=== PATIENT | female | born 1985 | race Hispanic/Latino ===

== ENCOUNTER 2018-12-01 02:13 | Inpatient (IN) | payer MEDICAID, OTHER, SELFPAY ==
[2018-12-01 02:44] LABS: Amnisure Internal Control QC ACCEPTABLE (ACCEPTABLE); Amnisure Test RUPTURE DETECTED (No Rupture)
[2018-12-01 02:46] VITALS: BMI 30.9
[2018-12-01] MEDS ORDERED: Acetaminophen 500 MG TAB PO PRN (03:14)
[2018-12-01] MEDS ORDERED: Lactated Ringer's 1,000 ML IV SCH (03:14)
[2018-12-01] MEDS ORDERED: Promethazine HCl 25 MG/ML VIAL IM PRN ×2 (03:14→04:33)
[2018-12-01] MEDS ORDERED: Ondansetron PF 4 MG/2 ML Vial IVP PRN ×2 (03:14→04:33)
[2018-12-01] MEDS ORDERED: Butorphanol Tartrate 1 MG/ML VIAL SLOW IVP PRN (03:14)
[2018-12-01] MEDS ORDERED: NS / Oxytocin 40 units/1000ml 1,000 ML IV SCH ×2 (03:15→11:54)
[2018-12-01] MEDS ORDERED: Lidocaine 1% (PF) 30 ML VIAL SC PRN (03:15)
[2018-12-01] MEDS ORDERED: NS w/ Oxytocin 10 units 500 ML IV SCH ×2 (03:15)
[2018-12-01] MEDS ORDERED: Fentanyl 4 mcg/Bup 0.1% Cadd 100 ML ONE (03:38)
[2018-12-01 03:42] LABS: Hemoglobin 12.4 g/dL (12.0-16.0); Mean Corpuscular HGB CONC 34.6 g/dL (32.0-36.0); Mean Corpuscular Hemoglobin 29.4 pg (27.0-31.0); Mean Corpuscular Volume 85.1 fL (78.0-98.0); Mean Platelet Volume 7.7 fL (7.4-10.4); Platelet Count 217 thou/uL (130-400); RBC Distribution Width 12.6 % (11.5-14.5); Red Blood Cell (RBC) Count 4.21 mill/uL (4.20-5.40); White Blood Cell (WBC) Count 10.9 thou/uL (4.8-10.8)
[2018-12-01 04:20] LABS: HBSAg Index 0.16 S/CO (0-0.99); HIV (1/2) Antibody/Antigen Non-Reactive (NonReactive); HIV 1/2 INDEX 0.08 S/CO (<1.00); Hep B Surf Ag Non-Reactive S/CO (NonReactive)
[2018-12-01 04:21] LABS: Syphilis Antibody Nonreactive (Nonreactive); Syphilis Antibody Index 0.03 S/CO (<1.00 Non-Reactive)
[2018-12-01] MEDS ORDERED: Lactated Ringer's 500 ML IV PRN (04:33)
[2018-12-01] MEDS ORDERED: Naloxone HCl 0.4 mg/ml Vial IVP PRN ×2 (04:33)
[2018-12-01] MEDS ORDERED: Acetaminophen 325 MG TAB PO PRN (04:33)
[2018-12-01] MEDS ORDERED: ePHEDrine/0.9% NaCl/PF SYRINGE 50 mg/10 ml SLOW IVP PRN (04:33)
[2018-12-01] MEDS ORDERED: Eucerin (Mineral Oil/Petrolatum,White) 30 gm Jar TOP PRN (04:33)
[2018-12-01] MEDS ORDERED: diphenhydrAMINE 50 MG/ML VIAL IVP PRN (04:33)
[2018-12-01] MEDS: Lactated Ringer's 1,000 ML IV SCH ×2 (04:36→15:52)
[2018-12-01] MEDS ORDERED: Communication Order-Pharmacy FS SCH (04:45)
[2018-12-01] MEDS ORDERED: Fentanyl 4 mcg/Bupivacaine 0.1% Cassette 100 ML EPIDURAL SCH (04:45)
--- NOTE | 2018-12-01 10:51 | PDOC.OPDEL ---
OB Operative/Delivery Note Delivery Dr/Surgeon: Elina Cunha ( Resident, Ob track); Aroldo (Faculty) Assist: Kendrick (Dr cano was not available for delivery) Pre-Delivery Diagnosis: active labor, other (TOLAC, HX successful x1) Procedure/Post Delivery Dx: spontaneous vaginal delivery (TOLAC) Anesthesia: epidural - Findings A Sex: female - 1 min: 9 - 5 min: 9 - Additional Findings/Plan Placenta delivered: spontaneous ( female at 1038) Estimated blood loss: 300 Compilations/Other Findings: Vigorous , no NC 3vc, placenta intact Plac at 1042...grace mechanism All counts correct No lacs No repair QBL pending Post delivery plan: routine recovery
[2018-12-01] MEDS ORDERED: Bupivacaine HCl 0.25%/Epi 0.0005/PF 10 ML VIAL FS ONE (11:11)
--- NOTE | 2018-12-01 11:52 | PDOC.EVN ---
Event Note - Event Note Event Note: AROM performed. Baby /+. Cat 1 strip.
[2018-12-01] MEDS ORDERED: Lanolin Ointment 7 GM TUBE TOP PRN (11:54)
[2018-12-01] MEDS ORDERED: Milk Of Magnesia 30 ML UDCUP PO PRN (11:54)
[2018-12-01] MEDS ORDERED: Preparation H Ointment 28 GM TUBE PR PRN (11:54)
[2018-12-01] MEDS ORDERED: Bisacodyl 10 MG SUPP PR PRN (11:54)
[2018-12-01] MEDS ORDERED: Methylergonovine 0.2 MG TAB PO PRN (11:54)
[2018-12-01] MEDS ORDERED: Methylergonovine 0.2 MG/ML VIAL IM PRN (11:54)
[2018-12-01] MEDS ORDERED: diphenhydrAMINE 25 MG CAP PO PRN (11:54)
[2018-12-01] MEDS ORDERED: Misoprostol 200 MCG TAB VAG PRN (11:54)
[2018-12-01] MEDS: Ibuprofen 800 MG TAB PO SCH (22:32)
[2018-12-01] MEDS: Docusate Calcium (SURFAK) 240 MG CAP PO SCH (22:32)
--- NOTE | 2018-12-02 00:43 | PDOC.PP ---
Post Progress Note Post Day #: 1 Subjective: Sleeping, doing well. She awoke as I was entering the room PO intake tolerated: yes Flatus: yes Ambulation: yes Vital Signs (12 hours) Temp Pulse Resp BP BP Pulse Ox 12/01/18 23:10 98.4 F 69 16 98/55 L 12/01/18 20:10 98.2 F 89 20 105/53 L 97 12/01/18 17:10 98.8 F 86 16 96/49 L 96 12/01/18 13:30 98.1 F 88 20 98/53 L 95 Weight Weight 180 lb - Physical Examination General: NAD Cardiovascular: no m/r/g Respiratory: clear to auscultation bilaterally Abdominal: + bowel sounds, lochia, no distention, appropriately TTP Extremities: negative homans (B) Neurological: no gross focal deficits Psychiatric: A&Ox3, normal affect Result Diagrams: 12/01/18 03:14 Additional Labs: Post Labs Blood Type O POSITIVE 12/01/18 03:15 Hep Bs Antigen Non-Reactive S/CO (NonReactive) 12/01/18 03:14 (1) , delivered Code(s): O34.219 - MATERNAL CARE FOR UNSP TYPE SCAR FROM PREVIOUS DEL Status: Acute - Assessment/Plan Plan: on 12/01/18...doing well. I offered the patient dsch on PPD 1 this AM or PPD2 tomorrow. As the other children are with her in the room, she has elected for dsch later today which is PPD1 I have written for mariajose espinozan F/U with [facility] in 2-4 weeks
[2018-12-02] MEDS: Ibuprofen 800 MG TAB PO SCH (05:33)
[2018-12-02 06:44] LABS: Hemoglobin 11.7 g/dL (12.0-16.0); Mean Corpuscular HGB CONC 33.5 g/dL (32.0-36.0); Mean Corpuscular Hemoglobin 29.2 pg (27.0-31.0); Mean Platelet Volume 7.9 fL (7.4-10.4); Platelet Count 204 thou/uL (130-400); RBC Distribution Width 12.7 % (11.5-14.5); White Blood Cell (WBC) Count 11.3 thou/uL (4.8-10.8)
[2018-12-02 08:54] VITALS: BP 99/49; TEMP 98
[2018-12-02] MEDS ORDERED: Adacel (T-DAP) 0.5 ML SYRINGE IM ONE (09:00)
[2018-12-02] MEDS ORDERED: Prenatal Vitamin 1 TAB PO SCH (09:00)
[2018-12-02] MEDS: Docusate Calcium (SURFAK) 240 MG CAP PO SCH (09:53)
== END 2018-12-02 14:05 | disposition home or self-care (01) | DRG 807 ==
LOC: L&D/OP 02:13 → L&D 03:21 → 3SW 13:36
PROVIDERS: ADMIT Family Medicine; ATTEND Family Medicine
PROC: 10E0XZZ Delivery of Products of Conception, External Approach (ICD-10-PCS; principal; 2018-12-01)
PROC: 10907ZC Drainage of Amniotic Fluid, Therapeutic from Products of Conception, Via Natural or Artificial Opening (ICD-10-PCS; 2018-12-01)
DX: O34.219 Maternal care for unspecified type scar from previous cesarean delivery (principal); Z37.0 Single live birth; Z3A.39 39 weeks gestation of pregnancy
CPT/HCPCS: 36415; 51702; 84112; 85027; 86762; 86780; 86850; 86900; 86901; 87340; 87389; 90715; 99285; J2001

== ENCOUNTER 2019-08-05 20:27 | Emergency (ER) | payer MEDICAID, SELFPAY ==
--- NOTE | 2019-08-05 20:54 | RAD ---
EXAM: 3 views of the right ankle HISTORY: Ankle pain after injury COMPARISON: None FINDINGS: 3 views of the right ankle shows no evidence of acute fracture or dislocation. Mild soft ti ssue swelling is seen. No degenerative changes are present. IMPRESSION: No evidence of acute osseous abnormality.
[2019-08-05] MEDS ORDERED: Ibuprofen 800 MG TAB ONE (21:05)
== END 2019-08-05 21:18 | disposition home or self-care (01) ==
LOC: ERS 20:27
DX: S93.401A Sprain of unspecified ligament of right ankle, initial encounter (principal); X50.1XXA Overexertion from prolonged static or awkward postures, initial encounter

== ENCOUNTER 2020-05-05 08:17 | Outpatient (CLI) | payer MEDICAID ==
--- NOTE | 2020-05-05 14:27 | ULT ---
OBSTETRICAL ULTRASOUND: DATE: 05/05/2020. COMPARISON: None. HISTORY: Evaluate anatomy, a 34-year-old female. TECHNIQUE: Multiplanar, nicole scale sonographic imaging of the gravid uterus obtained. FINDINGS: Cervical length is approximately 3.4 cm. Placenta located posteriorly with placental tip approximate ly 2.8 cm from the internal os. There is a vertex presentation. Intracranial contents appear unremarkable as does the st omach. heart rate is 147 b.p.m. kidneys, urinary bladder, and umbilical cord appear jorden ssly unremarkable. Umbilical cord insertion site and spine appear within normal limits. Three -vessel cord is documented. Amniotic fluid index is 12.4 cm. Four-chamber heart view unremarkable. Biometry: BPD 4.5 cm, 19 weeks 4 days HC 18.1 cm, 20 weeks 4 days AC 15.3 cm, 20 weeks 4 days FL 3.3 cm, 20 weeks 1 day Average age based on ultrasound is 20 weeks 2 days. Estimated weight is 345 gm +/- 50 grams. Estimated date of delivery based on ultrasound is 09/20/2020. IMPRESSION: Intrauterine gestation as detailed above. POS: LAURI
== END 2020-05-05 08:18 | disposition home or self-care (01) ==
LOC: BICULT 08:17
PROVIDERS: ATTEND Family Medicine
DX: O09.522 Supervision of elderly multigravida, second trimester (principal); Z3A.20 20 weeks gestation of pregnancy
CPT/HCPCS: 76805

== ENCOUNTER 2020-09-18 23:43 | Inpatient (IN) | payer MEDICAID, SELFPAY ==
[2020-09-19] MEDS ORDERED: Lidocaine 1% (PF) 30 ML VIAL ONE (00:09)
[2020-09-19] MEDS ORDERED: NS / Oxytocin 40 units/1000ml 1,000 ML ONE (00:09)
[2020-09-19] MEDS: NS / Oxytocin 40 units/1000ml 1,000 ML IV PRN ×2 (00:24→01:44)
[2020-09-19 00:25] LABS: Hemoglobin 11.1 g/dL (12.0-16.0); Mean Corpuscular HGB CONC 33.5 g/dL (32.0-36.0); Mean Corpuscular Hemoglobin 26.7 pg (27.0-31.0); Mean Corpuscular Volume 79.9 fL (78.0-98.0); Mean Platelet Volume 8.2 fL (7.4-10.4); Platelet Count 294 thou/uL (130-400); RBC Distribution Width 13.1 % (11.5-14.5); Red Blood Cell (RBC) Count 4.15 mill/uL (4.20-5.40); White Blood Cell (WBC) Count 11.4 thou/uL (4.8-10.8)
[2020-09-19] MEDS ORDERED: Diphenoxylate HCl/Atropine Tablet PO PRN (00:38)
[2020-09-19] MEDS ORDERED: Misoprostol 200 MCG TAB PR PRN (00:38)
[2020-09-19] MEDS ORDERED: Methylergonovine 0.2 MG/ML VIAL IM PRN (00:38)
[2020-09-19] MEDS ORDERED: Ibuprofen 800 MG TAB PO PRN (00:38)
[2020-09-19] MEDS ORDERED: Carboprost 250 MCG/ML AMP IM PRN (00:38)
[2020-09-19] MEDS ORDERED: Lidocaine 1% (PF) 30 ML VIAL SC PRN (00:38)
[2020-09-19] MEDS ORDERED: HYDROcodone/Acetaminophen 5/325 mg Tablet PO PRN ×2 (00:38→07:55)
[2020-09-19 01:04] LABS: HBSAg Index 0.16 S/CO (0-0.99); Hep B Surf Ag Non-Reactive S/CO (NonReactive)
[2020-09-19 01:24] VITALS: BMI 30.2
[2020-09-19 04:09] LABS: Syphilis Antibody Nonreactive (Nonreactive); Syphilis Antibody Index 0.02 S/CO (<1.00 Non-Reactive)
[2020-09-19] MEDS ORDERED: NS / Oxytocin 40 units/1000ml 1,000 ML IV SCH (07:55)
[2020-09-19] MEDS ORDERED: Preparation H Ointment 28 GM TUBE PR PRN (07:55)
[2020-09-19] MEDS ORDERED: Lanolin Ointment 7 GM TUBE TOP PRN (07:55)
[2020-09-19] MEDS ORDERED: hydrALAZINE 20 MG/ML VIAL SLOW IVP PRN (07:55)
[2020-09-19] MEDS ORDERED: Ondansetron PF 4 MG/2 ML Vial IVP PRN (07:55)
[2020-09-19] MEDS ORDERED: Milk Of Magnesia 30 ML UDCUP PO PRN (07:55)
[2020-09-19] MEDS ORDERED: Adacel (T-DAP) 0.5 ML SYRINGE IM ONE (07:55)
[2020-09-19] MEDS ORDERED: Bisacodyl 10 MG SUPP PR PRN (07:55)
[2020-09-19] MEDS ORDERED: FLU VACC QS2020-21(6MOS UP)/PF 60 MCG/0.5 ML SYRINGE IM ONE (09:00)
[2020-09-19] MEDS: HYDROcodone/Acetaminophen 5/325 mg Tablet PO PRN ×2 (09:36→20:38)
[2020-09-19] MEDS: Docusate Calcium (SURFAK) 240 MG CAP PO SCH ×2 (09:36→20:37)
[2020-09-19] MEDS: Prenatal Vitamin 1 TAB PO SCH (09:36)
[2020-09-19] MEDS: Ferrous Sulfate 325 MG TAB PO SCH ×2 (09:41→18:00)
[2020-09-19 11:03] LABS: SARS-CoV-2 MS2 Positive; SARS-CoV-2 N Gene Negative; SARS-CoV-2 S Gene Negative; SARS-CoV-2 by NAA Not Detected (NotDetected); SARS-CoV-2 orf1ab Negative
[2020-09-19] MEDS: Ibuprofen 800 MG TAB PO SCH ×2 (14:27→22:06)
[2020-09-20] MEDS: Ibuprofen 800 MG TAB PO SCH ×2 (05:24→13:27)
[2020-09-20 08:00] VITALS: BP 110/56; TEMP 97.9
[2020-09-20] MEDS: Ferrous Sulfate 325 MG TAB PO SCH ×2 (08:21→15:41)
[2020-09-20] MEDS: Prenatal Vitamin 1 TAB PO SCH (08:47)
[2020-09-20] MEDS: Docusate Calcium (SURFAK) 240 MG CAP PO SCH (08:47)
== END 2020-09-20 16:55 | disposition home or self-care (01) | DRG 807 ==
LOC: L&D/OP 23:43 → L&D 09-19 00:17 → 3SW 09-19 09:21
PROVIDERS: ADMIT Family Medicine; ATTEND Family Medicine
PROC: 10E0XZZ Delivery of Products of Conception, External Approach (ICD-10-PCS; principal; 2020-09-19)
PROC: 10907ZC Drainage of Amniotic Fluid, Therapeutic from Products of Conception, Via Natural or Artificial Opening (ICD-10-PCS; 2020-09-19)
DX: O62.3 Precipitate labor (principal); Z37.0 Single live birth; Z3A.39 39 weeks gestation of pregnancy; O76 Abnormality in fetal heart rate and rhythm complicating labor and delivery; O34.211 Maternal care for low transverse scar from previous cesarean delivery; O77.0 Labor and delivery complicated by meconium in amniotic fluid; Z20.828 Contact with and (suspected) exposure to other viral communicable diseases
CPT/HCPCS: 85027; 86780; 86850; 86900; 86901; 87340; 87635; 99285; J2001; U0003

== ENCOUNTER 2023-02-27 14:02 | Emergency (ER) | payer MEDICAID, SELFPAY ==
[2023-02-27 14:55] LABS: #Eosinphils 0.1 thou/uL (0.0-0.7); #Lymphocytes 1.7 thou/uL (1.20-3.40); #Monocytes 0.3 thou/uL (0.11-0.59); #Neutrophils 7.9 thou/uL (1.40-6.50); %Basophils 0.2 % (0.0-1.0); %Eosinophils 0.8 % (0.0-10.0); %Lymphocytes 17.2 % (21.0-51.0); %Neutrophils 78.8 % (42.0-75.0); Hemoglobin 13.5 g/dL (12.0-16.0); Mean Corpuscular HGB CONC 34.8 g/dL (32.0-36.0); Mean Corpuscular Hemoglobin 31.4 pg (27.0-31.0); Mean Corpuscular Volume 90.2 fl (78.0-98.0); Mean Platelet Volume 7.8 fL (7.4-10.4); Platelet Count 278 10x3/uL (130-400); RBC Distribution Width 12.1 % (11.5-14.5); Red Blood Cell (RBC) Count 4.29 mill/uL (4.20-5.40)
[2023-02-27 15:10] LABS: BHCG - Serum Negative (NEGATIVE); Pregs Control Background? CLEAR/WHITE (CLR/WHITE); Pregs Control Bar Appear? YES (CONTROL BAR)
[2023-02-27] MEDS ORDERED: Meclizine HCl 25 MG TAB ONE (15:14)
[2023-02-27] MEDS ORDERED: Ondansetron PF 4 MG/2 ML Vial ONE (15:14)
[2023-02-27] MEDS ORDERED: Dexamethasone 10 MG/ML VIAL ONE (15:14)
[2023-02-27 15:17] LABS: ALT (SGPT) 15 U/L (8-55); AST (SGOT) 14 U/L (5-34); Albumin 4.7 g/dL (3.5-5.0); Alkaline Phosphatase 76 U/L (40-110); Anion Gap 12 mmol/L (10-20); BUN (Urea Nitrogen) 19 mg/dL (7.0-18.7); Bilirubin, Total 0.5 mg/dL (0.2-1.2); Calc. Creatinine Clearance 0 mL/min (70-130); Calcium 9.3 mg/dL (7.8-10.44); Carbon Dioxide 22 mmol/L (22-29); Chloride 108 mmol/L (98-107); Estimated GFR 115; Glucose 111 mg/dL (70-105); Lipase 12 U/L (8-78); Protein, Total 7.7 g/dL (6.0-8.3); Sodium 138 mmol/L (136-145)
== END 2023-02-27 16:16 | disposition home or self-care (01) ==
LOC: ERS 14:02
DX: R42 Dizziness and giddiness (principal)
CPT/HCPCS: 36415; 80053; 83690; 84703; 85025; 93005; 96374; 96375; J1100; J2405